=== PATIENT | male | born 1955 | race Caucasian/White ===

== ENCOUNTER 2018-12-18 19:12 | Observation (INO) | payer MEDICARE, OTHER ==
[2018-12-18] MEDS: ASPIRIN 81 MG TAB PO (20:03)
[2018-12-18] MEDS: morphine 4 MG/ML VIAL IV (20:03)
[2018-12-18] MEDS: ONDANSETRON 4 MG INJ IV (20:03)
[2018-12-18 20:17] LABS: ADD MAN DIFF? NO
[2018-12-18 20:19] LABS: BASOPHIL # 0.1 10^3/ul (0.0-0.1); BASOPHILS % 0.7 % (0.0-2.0); EOSINOPHILS # 0.1 10^3/ul (0.0-0.5); EOSINOPHILS % 0.7 % (0.0-7.0); HEMATOCRIT 48.6 % (42.0-52.0); LYMPHOCYTES # 2.2 10^3/ul (0.8-2.9); LYMPHOCYTES % 30.8 % (15.0-51.0); MEAN CORPUSCULAR HEMOGLOBIN 29.9 pg (29.0-33.0); MEAN CORPUSCULAR VOLUME 85.6 fl (82.0-101.0); MEAN PLATELET VOLUME 10.7 fl (7.4-10.4); MONOCYTE # 0.6 10^3/ul (0.3-0.9); MONOCYTES % 7.9 % (0.0-11.0); NEUTROPHIL # 4.3 10^3/ul (1.6-7.5); NEUTROPHILS % 59.3 % (39.0-77.0); PLATELET COUNT 235 10^3/UL (140-415); RED BLOOD COUNT 5.68 10^6/ul (4.70-6.10); RED CELL DISTRIBUTION WIDTH 12.7 % (11.5-14.5)
[2018-12-18 20:19] LABS: WHITE BLOOD COUNT 7.2 10^3/ul (4.8-10.8)
[2018-12-18 20:37] LABS: ALANINE AMINOTRANSFERASE 21 IU/L (13-69); ALBUMIN/GLOBULIN RATIO 1.11; ALKALINE PHOSPHATASE 76 IU/L (42-121); ANION GAP 13 (5-13); ASPARTATE AMINO TRANSFERASE 27 IU/L (15-46); BILIRUBIN,INDIRECT 0.4 mg/dl (0-1.1); BILIRUBIN,TOTAL 0.4 mg/dl (0.2-1.3); BLOOD UREA NITROGEN 15 mg/dl (7-20); CALCIUM 9.3 mg/dl (8.4-10.2); CARBON DIOXIDE 19 mmol/L (21-31); CHLORIDE 111 mmol/L (97-110); CREATININE 0.59 mg/dl (0.61-1.24); Estimated GFR > 60 mL/min (>60); GLUCOSE 117 mg/dl (70-220); POTASSIUM 4.2 mmol/L (3.5-5.1); SODIUM 143 mmol/L (135-144); TOTAL PROTEIN 7.6 g/dl (6.1-8.1)
[2018-12-18 20:53] LABS: TROPONIN-I < 0.012 ng/ml (0.000-0.120)
[2018-12-18] MEDS ORDERED: BISACODYL (EC) 5 MG TAB PO (22:00)
[2018-12-18] MEDS ORDERED: ONDANSETRON 4 MG TAB PO (22:00)
[2018-12-18] MEDS ORDERED: NACL 0.9% 3 ML SYG IV (22:00)
[2018-12-18] MEDS ORDERED: NITROGLYCERIN (SL) 0.4 MG TAB SL (22:00)
[2018-12-18] MEDS ORDERED: DOCUSATE SODIUM 100 MG CAP PO (22:00)
[2018-12-18] MEDS: ACETAMINOPHEN 325 MG TAB PO (23:14)
[2018-12-19 00:25] LABS: CREATINE KINASE 23 IU/L (23-200)
[2018-12-19 00:38] LABS: CK INDEX 1.9; CK-MB 0.43 ng/ml (0.0-2.4); TROPONIN-I < 0.012 ng/ml (0.000-0.120)
[2018-12-19] MEDS: KETOROLAC 15 MG INJ IV (01:23)
[2018-12-19] MEDS: morphine 2 MG INJ IV ×2 (03:17→22:34)
[2018-12-19] MEDS: HYDROCODONE/APAP (5/325) TAB PO ×4 (05:40→20:59)
[2018-12-19] MEDS: AMLODIPINE 5 MG TAB PO (05:41)
[2018-12-19 06:54] LABS: ADD MAN DIFF? NO
[2018-12-19 06:57] LABS: BASOPHIL # 0.1 10^3/ul (0.0-0.1); BASOPHILS % 0.7 % (0.0-2.0); EOSINOPHILS # 0.1 10^3/ul (0.0-0.5); EOSINOPHILS % 1.8 % (0.0-7.0); HEMATOCRIT 45.7 % (42.0-52.0); HEMOGLOBIN 15.7 g/dl (14.0-18.0); LYMPHOCYTES # 2.5 10^3/ul (0.8-2.9); LYMPHOCYTES % 34.1 % (15.0-51.0); MEAN CORPUSCULAR HEMOGLOBIN 29.8 pg (29.0-33.0); MEAN CORPUSCULAR HGB CONC 34.4 g/dl (32.0-37.0); MEAN CORPUSCULAR VOLUME 86.9 fl (82.0-101.0); MEAN PLATELET VOLUME 10.3 fl (7.4-10.4); MONOCYTE # 0.6 10^3/ul (0.3-0.9); MONOCYTES % 7.5 % (0.0-11.0); NEUTROPHIL # 4.1 10^3/ul (1.6-7.5); NEUTROPHILS % 55.6 % (39.0-77.0); PLATELET COUNT 213 10^3/UL (140-415); RED BLOOD COUNT 5.26 10^6/ul (4.70-6.10)
[2018-12-19 06:57] LABS: WHITE BLOOD COUNT 7.3 10^3/ul (4.8-10.8)
[2018-12-19 07:30] LABS: CREATINE KINASE 25 IU/L (23-200)
[2018-12-19 07:31] LABS: ALANINE AMINOTRANSFERASE 28 IU/L (13-69); ALBUMIN 3.6 g/dl (3.3-4.9); ALBUMIN/GLOBULIN RATIO 1.24; ALKALINE PHOSPHATASE 75 IU/L (42-121); ANION GAP 10 (5-13); ASPARTATE AMINO TRANSFERASE 21 IU/L (15-46); BILIRUBIN,INDIRECT 0.4 mg/dl (0-1.1); BILIRUBIN,TOTAL 0.4 mg/dl (0.2-1.3); BLOOD UREA NITROGEN 18 mg/dl (7-20); CALCIUM 9.2 mg/dl (8.4-10.2); CARBON DIOXIDE 27 mmol/L (21-31); CHLORIDE 105 mmol/L (97-110); CHOLESTEROL 166 mg/dl (100-200); CREATININE 0.81 mg/dl (0.61-1.24); Estimated GFR > 60 mL/min (>60); GLUCOSE 119 mg/dl (70-220); HDL CHOLESTEROL 41 mg/dl (30-78); LDL CHOLESTEROL,CALCULATED 77 mg/dl; MAGNESIUM 1.9 mg/dl (1.7-2.5); SODIUM 142 mmol/L (135-144); TOTAL PROTEIN 6.5 g/dl (6.1-8.1); TRIGLYCERIDES 240 mg/dl (0-149)
[2018-12-19 07:34] LABS: HEMOGLOBIN A1C 6.2 % (0-5.9)
[2018-12-19 07:44] LABS: CK INDEX 2.2; CK-MB 0.55 ng/ml (0.0-2.4); TROPONIN-I < 0.012 ng/ml (0.000-0.120)
[2018-12-19 08:00] LABS: THYROID STIMULATING HORMONE 0.986 MIU/L (0.465-4.680)
[2018-12-19] MEDS ORDERED: hydrALAzine 20 MG INJ IV (08:00)
[2018-12-19] MEDS: CARBAMAZEPINE 200 MG TAB PO (09:33)
[2018-12-19] MEDS: ASPIRIN 81 MG TAB PO (09:33)
[2018-12-19] MEDS: IBUPROFEN 600 MG TAB PO ×3 (09:33→22:39)
[2018-12-19] MEDS: NICOTINE (14 MG/24 HR) PATCH TRANSDERM (09:34)
[2018-12-19] MEDS: PAROXETINE 20 MG TAB PO (20:59)
[2018-12-19] MEDS: carBAMAZepine CHEW 100 MG CHEW PO (20:59)
[2018-12-19] MEDS: AMLODIPINE 2.5 MG TAB PO (21:00)
[2018-12-19] MEDS: LIDOCAINE 5% PATCH TD (22:34)
[2018-12-19] MEDS: RAMELTEON 8 MG TAB PO (22:39)
[2018-12-20] MEDS: IBUPROFEN 600 MG TAB PO (06:56)
[2018-12-20] MEDS: HYDROCODONE/APAP (5/325) TAB PO ×3 (06:56→20:30)
[2018-12-20 07:24] LABS: ADD MAN DIFF? NO
[2018-12-20 07:32] LABS: BASOPHIL # 0.1 10^3/ul (0.0-0.1); BASOPHILS % 1.2 % (0.0-2.0); EOSINOPHILS # 0.1 10^3/ul (0.0-0.5); EOSINOPHILS % 1.9 % (0.0-7.0); HEMATOCRIT 46.4 % (42.0-52.0); HEMOGLOBIN 16.2 g/dl (14.0-18.0); LYMPHOCYTES # 2.7 10^3/ul (0.8-2.9); LYMPHOCYTES % 38.9 % (15.0-51.0); MEAN CORPUSCULAR HEMOGLOBIN 30.4 pg (29.0-33.0); MEAN CORPUSCULAR HGB CONC 34.9 g/dl (32.0-37.0); MEAN CORPUSCULAR VOLUME 87.1 fl (82.0-101.0); MEAN PLATELET VOLUME 10.6 fl (7.4-10.4); MONOCYTE # 0.5 10^3/ul (0.3-0.9); MONOCYTES % 6.6 % (0.0-11.0); NEUTROPHIL # 3.5 10^3/ul (1.6-7.5); PLATELET COUNT 212 10^3/UL (140-415); RED BLOOD COUNT 5.33 10^6/ul (4.70-6.10); RED CELL DISTRIBUTION WIDTH 12.8 % (11.5-14.5)
[2018-12-20 07:32] LABS: WHITE BLOOD COUNT 6.8 10^3/ul (4.8-10.8)
[2018-12-20 08:00] LABS: ANION GAP 10 (5-13); BLOOD UREA NITROGEN 18 mg/dl (7-20); CALCIUM 9.3 mg/dl (8.4-10.2); CARBON DIOXIDE 23 mmol/L (21-31); CHLORIDE 109 mmol/L (97-110); CREATININE 0.66 mg/dl (0.61-1.24); Estimated GFR > 60 mL/min (>60); GLUCOSE 132 mg/dl (70-220); MAGNESIUM 1.9 mg/dl (1.7-2.5); SODIUM 142 mmol/L (135-144)
[2018-12-20 08:00] LABS: PHOSPHORUS 3.2 mg/dl (2.5-4.9)
[2018-12-20] MEDS: AMLODIPINE 2.5 MG TAB PO ×2 (09:12→20:31)
[2018-12-20] MEDS: ASPIRIN 81 MG TAB PO (09:12)
[2018-12-20] MEDS: CARBAMAZEPINE 200 MG TAB PO (09:12)
[2018-12-20] MEDS: PAROXETINE 20 MG TAB PO (20:30)
[2018-12-20] MEDS: carBAMAZepine CHEW 100 MG CHEW PO (20:31)
[2018-12-20] MEDS: LISINOPRIL 5 MG TAB PO (20:31)
[2018-12-20] MEDS: ENOXAPARIN 30 MG/0.3 ML SYG SC (20:55)
[2018-12-21 06:46] LABS: ADD MAN DIFF? NO
[2018-12-21 06:50] LABS: WHITE BLOOD COUNT 6.4 10^3/ul (4.8-10.8)
[2018-12-21 06:50] LABS: BASOPHILS % 0.6 % (0.0-2.0); EOSINOPHILS # 0.1 10^3/ul (0.0-0.5); EOSINOPHILS % 1.2 % (0.0-7.0); HEMATOCRIT 48.2 % (42.0-52.0); HEMOGLOBIN 16.3 g/dl (14.0-18.0); LYMPHOCYTES # 2.2 10^3/ul (0.8-2.9); LYMPHOCYTES % 34.2 % (15.0-51.0); MEAN CORPUSCULAR HEMOGLOBIN 29.8 pg (29.0-33.0); MEAN CORPUSCULAR HGB CONC 33.8 g/dl (32.0-37.0); MEAN CORPUSCULAR VOLUME 88.1 fl (82.0-101.0); MEAN PLATELET VOLUME 10.4 fl (7.4-10.4); MONOCYTE # 0.4 10^3/ul (0.3-0.9); MONOCYTES % 6.2 % (0.0-11.0); NEUTROPHIL # 3.7 10^3/ul (1.6-7.5); NEUTROPHILS % 57.5 % (39.0-77.0); PLATELET COUNT 215 10^3/UL (140-415); RED BLOOD COUNT 5.47 10^6/ul (4.70-6.10); RED CELL DISTRIBUTION WIDTH 12.8 % (11.5-14.5)
[2018-12-21 07:14] LABS: ALANINE AMINOTRANSFERASE 25 IU/L (13-69); ALBUMIN 3.8 g/dl (3.3-4.9); ALBUMIN/GLOBULIN RATIO 1.08; ALKALINE PHOSPHATASE 72 IU/L (42-121); ANION GAP 8 (5-13); ASPARTATE AMINO TRANSFERASE 24 IU/L (15-46); BILIRUBIN,INDIRECT 0.3 mg/dl (0-1.1); BILIRUBIN,TOTAL 0.3 mg/dl (0.2-1.3); BLOOD UREA NITROGEN 20 mg/dl (7-20); CALCIUM 9.3 mg/dl (8.4-10.2); CARBON DIOXIDE 26 mmol/L (21-31); CHLORIDE 108 mmol/L (97-110); Estimated GFR > 60 mL/min (>60); GLUCOSE 149 mg/dl (70-220); HDL CHOLESTEROL 42 mg/dl (30-78); POTASSIUM 4.6 mmol/L (3.5-5.1); SODIUM 142 mmol/L (135-144); TOTAL PROTEIN 7.3 g/dl (6.1-8.1); TRIGLYCERIDES 238 mg/dl (0-149)
[2018-12-21 07:15] LABS: CHOL/HDL RATIO 4.5 RATIO; CHOLESTEROL 189 mg/dl (100-200); LDL CHOLESTEROL,CALCULATED 99 mg/dl
[2018-12-21 07:26] LABS: PHOSPHORUS 3.1 mg/dl (2.5-4.9)
[2018-12-21 07:26] LABS: LIPASE 111 U/L (23-300); MAGNESIUM 1.9 mg/dl (1.7-2.5)
[2018-12-21] MEDS: CARBAMAZEPINE 200 MG TAB PO (08:22)
[2018-12-21] MEDS: ASPIRIN 81 MG TAB PO (08:22)
[2018-12-21] MEDS: AMLODIPINE 2.5 MG TAB PO (08:23)
[2018-12-21] MEDS: LISINOPRIL 5 MG TAB PO (08:23)
[2018-12-21] MEDS: ENOXAPARIN 30 MG/0.3 ML SYG SC (08:25)
== END 2018-12-21 16:30 | disposition home or self-care (01) ==
LOC: TEL 21:48 → E/R 19:12
DX: R07.9 Chest pain, unspecified (principal); I10 Essential (primary) hypertension; R73.03 Prediabetes; Z72.0 Tobacco use; E66.01 Morbid (severe) obesity due to excess calories; Z68.28 Body mass index [BMI] 28.0-28.9, adult; E78.5 Hyperlipidemia, unspecified; F39 Unspecified mood [affective] disorder
CPT/HCPCS: 36415; 71045; 80048; 80053; 80061; 80156; 82550; 82553; 83036; 83690; 83735; 84100; 84443; 84484; 85025; 90686; 93005; 93306; 96374; 96375; 99217; 99285-25; G0378